=== PATIENT | male | born 2000 | race Caucasian/White ===

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

== ENCOUNTER 2020-05-09 13:51 | Emergency (ER) | payer BC, MEDICAID ==
[2020-05-09 14:04] VITALS: BP 125/73; PULSE 79
[2020-05-09] MEDS ORDERED: Lidocaine 2% 20 ML MDV INJECT ONE (14:08)
[2020-05-09] MEDS ORDERED: Bacitracin Oint 1 GM U/D Packet TOP ONE (14:08)
--- NOTE | 2020-05-09 14:13 | EDM.PDOC ---
ED HPI GENERAL MEDICAL PROBLEM - General Chief Complaint: Laceration Stated Complaint: CUT RIGHT THUMB ON TABLE SAW Time Seen by Provider: 05/09/20 14:00 Source of Information: Reports: Patient, RN History Limitations: Reports: No Limitations - History of Present Illness INITIAL COMMENTS - FREE TEXT/NARRATIVE: 20 yo male lacerated the hood aspect of his R thumb with a table saw just before arrival. Is uncertain about his tetanus status. Onset: Today, Sudden Onset Date: 05/09/20 Duration: Minutes: Location: Reports: Upper Extremity, Left Quality: Reports: Burning Severity: Moderate Improves with: Reports: None Worsens with: Reports: Other (touching wound) Context: Reports: Trauma Associated Symptoms: Reports: No Other Symptoms Treatments MANAGER [employer]ANCE: Reports: Other (see below) (none) Right Finger-Thumb Pain Score (Numeric/FACES): 4 - Related Data Allergies Allergy/AdvReac Type Severity Reaction Status Date / Time Penicillins Allergy Rash Verified 05/09/20 14:02 Home Meds: Home Meds Acetaminophen/HYDROcodone [[place] 325-5 MG] 1 - 2 tab PO Q6H PRN #12 tab 05/09/20 [Rx] Past Medical History Gastrointestinal History: Reports: Hiatal Hernia Musculoskeletal History: Reports: Fracture Other Musculoskeletal History: Bilateral wrist fx. Nose fx. Neurological History: Reports: Concussion - Past Surgical History HEENT Surgical History: Reports: Other (See Below) Other HEENT Surgeries/Procedures: nose surgery ED ROS GENERAL - Review of Systems Review Of Systems: See Below Constitutional: Reports: No Symptoms Musculoskeletal: Reports: Hand Pain (R hand) Skin: Reports: Wound (R thumb) Neurological: Reports: No Symptoms ED EXAM, SKIN/RASH Exam: See Below Exam Limited By: No Limitations General Appearance: Alert, WD/WN, No Apparent Distress Extremities: Other (laceration R thumb hood aspect, bleeding controlled on arrival. Flexion is intact, but somewhat weaker than on the left side. ) Neurological: Alert, Oriented, CN II-XII Intact, Normal Cognition, Sensory/Motor Deficit (slightly numb to distal R thumb) Psychiatric: Normal Affect, Normal Mood Skin: Warm, Dry, Normal Color, No Rash, Wound/Incision (avulsion hood aspect of L thumb). No: Intact, Erythema, Increased Warmth, Lymphangitis Location, Skin: Upper Extremity, Right ED SKIN PROCEDURES - Laceration/Wound Repair Left Anterior Digit - 1st (Thumb) Appearance: Subcutaneous, Irregular, Mildly Contaminated Anesthetic Type: Digital Local Anesthesia - Lidocaine (Xylocaine): 2% Plain Local Anesthetic Volume: Other (10 ml) Skin Prep: Saline Saline Irrigation (cc's): 250 Exploration/Debridement/Repair: Wound Explored, Explored to Base, Minimal Debridement Closed with: Sutures Lac/Wound length In cm: 3 Suture Size: 5-0 # of Sutures: 8 Suture Type: Nylon, Interrupted, Simple Drain Placement: No Sterile Dressing Applied: Nurse Tetanus Status Addressed: Yes Complications: No Course - Vital Signs Last Recorded V/S: Last Vital Signs Temp 37.2 C 05/09/20 14:10 Pulse 79 05/09/20 14:10 Resp 16 05/09/20 14:10 BP 125/73 05/09/20 14:10 Pulse Ox 98 05/09/20 14:10 - Orders/Labs/Meds Orders: Active Orders 24 hr Category Date Time Status Vaccines to be Administered [RC] PER UNIT ROUTINE Care 05/09/20 14:23 Active Meds: Medications Discontinued Medications Generic Name Dose Route Start Last Admin Trade Name Tam PRN Reason Stop Dose Admin Hydrocodone Bitart/Acetaminophen 1 tab 05/09/20 15:00 [place] 325-5 Mg PO 05/09/20 15:01 ONETIME ONE Bacitracin 1 dose 05/09/20 14:08 05/09/20 14:15 Bacitracin Oint 1 Gm TOP 05/09/20 14:09 1 dose ONETIME ONE Administration Diphtheria/Tetanus/Acell Pertussis 0.5 ml 05/09/20 14:23 05/09/20 14:36 Boostrix IM 05/09/20 14:24 0.5 ml .ONCE ONE Administration Lidocaine HCl 10 ml 05/09/20 14:08 05/09/20 14:15 Xylocaine 2% INJECT 05/09/20 14:09 10 ml ONETIME ONE Administration Departure - Departure Time of Disposition: 15:15 Disposition: Home, Self-Care 01 Condition: Fair Clinical Impression: Laceration of right thumb Qualifiers: Encounter type: initial encounter Damage to nail status: without damage Foreign body presence: without foreign body Qualified Code(s): S61.011A - Laceration without foreign body of right thumb without damage to nail, initial encounter - Discharge Information *PRESCRIPTION DRUG MONITORING PROGRAM REVIEWED*: Yes *COPY OF PRESCRIPTION DRUG MONITORING REPORT IN PATIENT ROSALINA: Yes Prescriptions: Acetaminophen/HYDROcodone [[place] 325-5 MG] 1 - 2 tab PO Q6H PRN #12 tab PRN Reason: Pain Instructions: Laceration Care, Adult, [id number] Referrals: PCP,None [Primary Care Provider] - Forms: ED Department Discharge Additional Instructions: Keep your right thumb clean, dry, and elevated for 3 days. Starting tomorrow wash with soap and water at least 2 times/day. Dry. Apply antibiotic ointment and a new dressing. F/U with orthopedics tomorrow for wound check and to test strength of your flexor tendon. Recheck anytime for signs of infection. You may take ibuprofen 600 mg every 6 hrs for pain relief, take with food. Add either [place](Coborn's) or acetaminophen for added relief. Sepsis Event Note (ED) - Focused Exam Vital Signs: Vital Signs Temp Pulse Resp BP Pulse Ox 05/09/20 14:10 37.2 C 79 16 125/73 98 05/09/20 14:03 37.2 C 79 16 125/73 98 - My Orders Last 24 Hours: My Active Orders 05/09/20 14:23 Vaccines to be Administered [RC] PER UNIT ROUTINE - Assessment/Plan Last 24 Hours: My Active Orders 05/09/20 14:23 Vaccines to be Administered [RC] PER UNIT ROUTINE
[2020-05-09] MEDS ORDERED: Diphtheria,Pertussis(Acell),Tetanus Vaccine 0.5 ML Syringe IM ONE (14:23)
[2020-05-09] MEDS ORDERED: Acetaminophen/HYDROcodone 325-5 MG Tab PO ONE (15:00)
== END 2020-05-09 15:22 | disposition home or self-care (01) ==
LOC: JP.ED 13:51
DX: S61.011A Laceration without foreign body of right thumb without damage to nail, initial encounter (principal); Z88.0 Allergy status to penicillin; Z23 Encounter for immunization; W31.2XXA Contact with powered woodworking and forming machines, initial encounter
CPT/HCPCS: 12002; 90471; 90715; 99282; A9270; J2001

== ENCOUNTER 2021-09-02 17:25 | Emergency (ER) | payer BC, MEDICAID ==
[2021-09-02] MEDS ORDERED: Acetaminophen 500 MG Tab PO ONE (17:59)
[2021-09-02] MEDS ORDERED: oxyCODONE 5 MG Tab PO ONE (17:59)
[2021-09-02 18:43] LABS: CORONAVIRUS COVID-19 NAA POSITIVE (NEGATIVE)
[2021-09-02 19:38] VITALS: BP 121/62; PULSE 114
== END 2021-09-02 19:10 | disposition home or self-care (01) ==
LOC: JP.ED 17:25
DX: U07.1 COVID-19 (principal); M54.50 Low back pain, unspecified; Z88.0 Allergy status to penicillin
CPT/HCPCS: 0241U; 99283; A9270